=== PATIENT | female | born 1935 | race Caucasian/White ===

== ENCOUNTER 2017-01-24 06:11 | Day surgery (SDC) | payer MEDICARE ==
[~2017-01-24] VITALS: Ht 162.6 cm; Wt 58.5 kg
[~2017-01-24 06:11] MED LIST: ALPR0.25 PO; AMLO5TAB22 PO; ASPI325T PO; CLOP75 PO; CORACAP PO; COZA100T PO; DIGO0.25 PO; ESTR.625 TOP; FENO1TAB76 PO; HYDR-2768 PO; HYDR-3580 PO; HYDR25TA35 PO; MAGN500T4 PO; METHI10 PO; PRAV20 PO; PROBCAP4 PO
[2017-01-24] MEDS ORDERED: METH5TAB4 PO (06:58)
[2017-01-24] MEDS ORDERED: CLOP75TA PO (06:58)
[2017-01-24] MEDS ORDERED: PROT40TA PO (06:58)
[2017-01-24] MEDS ORDERED: FENO145T2 PO (06:58)
[2017-01-24] MEDS ORDERED: ALPR0.25 PO (06:58)
[2017-01-24] MEDS ORDERED: HYDR-3288 PO (06:58)
[2017-01-24] MEDS ORDERED: VENTAER INH (06:58)
[2017-01-24] MEDS ORDERED: ESTR0.62 VAGINAL (06:58)
[2017-01-24] MEDS ORDERED: TRAD5TAB PO (06:58)
[2017-01-24] MEDS ORDERED: PRAV80TA2 PO (06:58)
[2017-01-24] MEDS ORDERED: LOSA100T PO (06:58)
[2017-01-24] MEDS ORDERED: ASPI325T PO (06:58)
[2017-01-24] MEDS ORDERED: CILO50TA PO (06:58)
[2017-01-24] MEDS ORDERED: DIGO0.12 PO (06:58)
[2017-01-24] MEDS ORDERED: VITA2000 PO (06:58)
[2017-01-24] MEDS ORDERED: ATEN25TA PO (06:58)
[2017-01-24] MEDS ORDERED: FLUT1SPR16 (06:58)
[2017-01-24] MEDS ORDERED: CORA1000 PO (06:58)
[2017-01-24] MEDS ORDERED: TOBRSUS9 EACH EYE (06:58)
[2017-01-24] MEDS ORDERED: HYDR12.57 PO (06:58)
[2017-01-24 07:04] VITALS: BP 105/53; PULSE 73; RESP 18; TEMP 98.1; O2SAT 96
[2017-01-24] MEDS ORDERED: HEPARIN SODIUM - SQ 10,000 UNITS/ML VIAL ONE (07:16)
[2017-01-24] MEDS ORDERED: HEPARIN SODIUM - IV 10,000 UNITS/10 ML VIAL ONE (07:16)
[2017-01-24] MEDS ORDERED: PROTAMINE SULFATE 50 MG/5 ML VIAL ONE (07:16)
[2017-01-24] MEDS ORDERED: MIDAZOLAM HCL 5 MG/5 ML VIAL ONE (07:54)
[2017-01-24] MEDS ORDERED: ONDANSETRON HCL 4 MG/2 ML VIAL ONE (08:33)
[2017-01-24] MEDS ORDERED: ATROPINE SULFATE 1 MG/ML VIAL IV PRN (09:45)
[2017-01-24] MEDS ORDERED: METOCLOPRAMIDE HCL 10 MG/2 ML VIAL IV PRN (09:45)
[2017-01-24] MEDS ORDERED: BACITRACIN OINT 0.9 GM PKT TOP ONE (09:45)
[2017-01-24] MEDS ORDERED: MISC INFORMATION XX ONE (09:45)
[2017-01-24] MEDS ORDERED: LORazepam 2 MG/ML VIAL IV PRN (09:45)
[2017-01-24] MEDS ORDERED: ONDANSETRON HCL 4 MG/2 ML VIAL IV PRN (09:45)
[2017-01-24] MEDS ORDERED: MORPHINE SULFATE 4 MG/ML INJ IV PUSH PRN (09:45)
[2017-01-24] MEDS ORDERED: LIDOCAINE HCL 1% 50 ML VIAL INFIL PRN (09:45)
[2017-01-24] MEDS ORDERED: SODIUM CHLOR 0.9% 250 ML INJ 250 ML IV PRN (09:45)
[2017-01-24] MEDS ORDERED: SODIUM CHLOR 0.9% 1000 ML INJ 1,000 ML IV SCH (10:00)
[2017-01-24] MEDS ORDERED: CLOPIDOGREL 75 MG TAB ONE (10:00)
--- NOTE | 2017-01-24 10:21 | MA ---
cc: SARAVANAN JOE DATE: 01/24/2017 PROCEDURE PERFORMED 1. Fluoroscopy with interpretation. 2. Left lower extremity peripheral angiography, first, second and third order visualization and interpretation. 3. Percutaneous transluminal angioplasty with drug-coated balloon in the left superficial femoral artery stent. 4. Percutaneous endovascular stenting with self-expanding stent of the distal left common iliac artery. METHOD The risks, benefits and alternatives were discussed with the patient. The patient understood and consented to the procedure. The patient was brought into the catheterization lab and placed on the catheterization table. The right groin was prepped and draped in sterile fashion. The right groin was anesthetized with 2% lidocaine. The right common femoral was cannulated and a 5-Korean, 11 cm sheath was placed without difficulty. PERIPHERAL ANGIOGRAPHY The left common iliac artery has mild luminal irregularities in the proximal segment. In the distal segment there is a 90% stenosis. There is a 100 mmHg translesional gradient present. In the left external iliac artery there is a stent throughout the entire length that has minor luminal irregularities in the mid to distal segment. The left internal iliac artery is not well-visualized. The left common femoral and profunda arteries have minor luminal irregularities. The left superficial femoral artery proximally is quite tortuous and has mild luminal irregularities. There is a stent present in the left mid to distal superficial femoral artery and has a 75% in-stent restenosis. At the distal stent margin there is also a 70% tubular stenosis. There is two-vessel runoff below the knee in the left lower extremity. The anterior tibial and peroneal vessels are patent down to the ankle. The posterior tibial appears to be occluded in the midsegment. PERCUTANEOUS INTERVENTION A 6-Korean, 45 cm [employer] [place] sheath was advanced up-and-over the arch into the left common femoral artery. A 0.035 inch, 260 cm stiff angled Glidewire is navigated down to the midsegment of the posterior tibial artery without difficulty. A 5.0 x 120 mm Medtronic balloon was then pre dilated to the left superficial femoral artery in two sequential inflations. A 6.0 x 150 mm Medtronic drug-coated balloon was then deployed for a prolonged inflation in the midsegment of the stent. The proximal popliteal artery was also post dilated to 10 atmospheres. Repeat angiography showed no significant residual stenosis in the superficial femoral artery or popliteal artery. Attention was then directed towards the left distal common iliac artery. The sheath was pulled back. In the left proximal common iliac artery a 9.0 x 40 mm Medtronic self-expanding stent was then deployed with stent overlap and post dilated with an 8.0 x 40 mm Medtronic balloon to 12 atmospheres. Repeat angiography showed no residual stenosis, ROLANDA-III flow. The wire was removed. The sheath was replaced with a 6-Korean 11 cm sheath to be removed with manual hemostasis. Heparin was administered throughout the entire procedure to maintain appropriate anticoagulation. CONCLUSIONS 1. 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 2. Severe stenosis of the proximal left popliteal artery. 3. 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 4. Successful percutaneous transluminal angioplasty with drug-coated balloon of the left superficial femoral artery and proximal popliteal artery. 5. Successful endovascular stenting with self-expanding stent of the distal left common iliac artery. PLAN Hopefully this will translate well with symptomatic improvement. Will continue aspirin and Plavix. Will monitor him closely for any post-procedural complication. I anticipate discharge later today. MD MARY LOU Perez/CAMERON /9:48 AM /10:03 AM
[2017-01-24] MEDS ORDERED: ACETAMINOPHEN/HYDROcodone 325 MG/10 MG TAB PO ONE (10:45)
[2017-01-24] MEDS ORDERED: ACETAMINOPHEN/HYDROcodone 325 MG/10 MG TAB PO PRN (10:45)
== END 2017-01-24 17:00 | disposition home or self-care (01) ==
LOC: HCVO 06:11 → HDIC 06:12 → HCVO 17:00
PROVIDERS: ATTEND Internal Medicine
DX: T82.858A Stenosis of other vascular prosthetic devices, implants and grafts, initial encounter (principal); I70.202 Unspecified atherosclerosis of native arteries of extremities, left leg
CPT/HCPCS: 37221; 37224; 75710; 85002; 86850; 86900; 86901; C1725; C1769; C1876; C2623; J1644; J2250; J2270; J3010; 85347; J2405; J2720